=== PATIENT | female | born 1965 | race Caucasian/White ===

== ENCOUNTER 2023-01-29 08:41 | Emergency (ER) | payer SELFPAY ==
[~2023-01-29] VITALS: Ht 154.9 cm; Wt 61.4 kg
[2023-01-29 09:15] LABS: EOSINOPHILS % 2.3 % (0.0-5.0); HEMATOCRIT. 40.3 % (36.0-48.0); HEMOGLOBIN. 14.2 g/dL (12.0-16.0); LYMPHOCYTES % 33.3 % (20.0-50.0); MEAN CORPUSCULAR HEMOGLOBIN 31.3 pg (28.0-32.0); MEAN CORPUSCULAR VOLUME 89.1 fL (81.0-99.0); MEAN PLATELET VOLUME 8.8 fl (7.4-10.4); MONOCYTES % 6.9 % (2.0-8.0); NEUTROPHILS % 56.5 % (40.0-76.0); PLATELET 293 x1000/uL (130-400); RED BLOOD CELL COUNT 4.53 mill/uL (4.2-5.4); RED CELL DISTRIBUTION WIDTH 12.3 % (11.6-14.6)
[2023-01-29 09:24] LABS: CHLORIDE 101 mEq/L (98-107)
[2023-01-29] MEDS ORDERED: ONDANSETRON 4MG ODT PO SCH (10:30)
[2023-01-29] MEDS ORDERED: ACETAMINOPHEN 325MG TABLET PO SCH (10:30)
[2023-01-29] MEDS ORDERED: KETOROLAC 30MG/ML VIAL IM SCH (10:30)
[2023-01-29] MEDS ORDERED: AMLODIPINE 5MG TABLET PO NR (15:00)
[2023-01-29] MEDS ORDERED: AMLO5TAB88 MT (17:52)
[2023-01-29 18:00] VITALS: BP 168/95
== END 2023-01-29 18:25 | disposition home or self-care (01) ==
LOC: ER 08:41
DX: G43.909 Migraine, unspecified, not intractable, without status migrainosus (principal); R11.2 Nausea with vomiting, unspecified; Z88.0 Allergy status to penicillin
CPT/HCPCS: 36415; 70450; 80053; 85025; 96372; 99285; J1885; Q0162